=== PATIENT | female | born 1970 | race Caucasian/White ===

== ENCOUNTER 2021-11-19 08:50 | Emergency (ER) | payer OTHER ==
[~2021-11-19] VITALS: Ht 160 cm; Wt 56.8 kg
[2021-11-19 08:56] VITALS: BP 130/81
[2021-11-19] MEDS ORDERED: bacitracin 15gm ointment TP ONE (09:20)
[2021-11-19] MEDS ORDERED: TETanus/Pertussis (Acell)/Diphther VAC/PF (Tdap-Adult) 0.5ml syringe IMVAC ONE (09:20)
[2021-11-19] MEDS ORDERED: LIDOcaine 1% W/epiNEPHrine 1:100,000 20ml vial IJ ONE (09:20)
[2021-11-19] MEDS ORDERED: CEPH250T PO (10:07)
== END 2021-11-19 10:23 | disposition home or self-care (01) ==
LOC: ER 08:51
DX: S71.112A Laceration without foreign body, left thigh, initial encounter (principal); V89.2XXA Person injured in unspecified motor-vehicle accident, traffic, initial encounter; Y93.89 Activity, other specified; Y92.89 Other specified places as the place of occurrence of the external cause; Y99.8 Other external cause status
CPT/HCPCS: 12001; 90471; 90715; 99283; J3490; A6449